=== PATIENT | female | born 1975 | race Hispanic/Latino ===

== ENCOUNTER 2024-11-09 10:49 | Emergency (ER) | payer SELFPAY ==
[2024-11-09 11:43] LABS: #Basophils 0.03 10x3/uL (0.0-0.2); #Eosinophils 0.11 10x3/uL (0.0-0.7); #Monocytes 0.50 10x3/uL (0.11-0.59); #Neutrophils 4.43 10x3/uL (1.40-6.50); %Basophils 0.4 % (0.0-1.0); %Eosinophils 1.6 % (0.0-10.0); %Lymphocytes 27.6 % (21.0-51.0); %Monocytes 7.1 % (0.0-10.0); %Neutrophils 63.0 % (42.0-75.0); Hematocrit 43.6 % (36.0-47.0); Hemoglobin 13.6 g/dL (12.0-16.0); Mean Corpuscular Hemoglobin 26.6 pg (27.0-31.0); Mean Corpuscular Volume 85.3 fL (78.0-98.0); Platelet Count 363 10x3/uL (130-400); Red Blood Cell (RBC) Count 5.11 mill/uL (4.20-5.40); White Blood Cell (WBC) Count 7.03 10x3/uL (4.8-10.8)
[2024-11-09 12:08] LABS: ALT (SGPT) 37 U/L (Less than 34); AST (SGOT) 24 U/L (11-34); Albumin 4.0 g/dL (3.1-4.5); Alkaline Phosphatase 101 U/L (40-110); Anion Gap 11 mmol/L (10-20); BUN (Urea Nitrogen) 15 mg/dL (7.0-18.7); Bilirubin, Total 0.3 mg/dL (0.3-1.2); Calc. Creatinine Clearance 0 mL/min (70-130); Calcium 8.9 mg/dL (7.8-10.44); Carbon Dioxide 25 mmol/L (22-29); Chloride 106 mmol/L (98-107); Globulin 3.2 g/dL (2.4-3.5); Glucose 126 mg/dL (70-105); Potassium 4.0 mmol/L (3.5-5.1); Sodium 138 mmol/L (136-145)
== END 2024-11-09 13:41 | disposition home or self-care (01) ==
LOC: ERS 10:49
DX: I10 Essential (primary) hypertension (principal)
CPT/HCPCS: 80053; 85025; 99283